=== PATIENT | female | born 1945 | race American Indian/Alaskan Native ===

== ENCOUNTER 2016-12-16 23:48 | Inpatient (IN) | payer MEDICARE ==
--- NOTE | 2016-12-17 01:00 | Emergency Department Report ---
HPI - General Chief Complaint: Weakness Time Seen by Provider: 12/17/16 00:57 - HPI HPI: [id number]-year-old -[place] female came to year-old for severe nausea , vomiting 1 day. Patient states her symptoms are accompanied by weakness. Patient was discharged from the hospital one week ago for weakness and low sodium. She states she was given nausea medicine in route to the hospital and feels much better. Patient denies any fever, chills, dysuria, urinary frequency , chest pain or shortness of breath. Patient denies any exacerbating factors. ED Past Medical Hx - Past Medical History Previous Medical History?: Yes Hx HIV: No Additional medical history: Hypothyroid, Hyponatremia - Surgical History Past Surgical History?: Yes Additional Surgical History: Tubal Ligation - Social History Smoking Status: Never Smoker Substance Use Type: None - Medications Home Medications: Home Medications Medication Instructions Recorded Confirmed Last Taken Type Levothyroxine [Synthroid] 25 mcg PO QAM 12/17/16 12/17/16 12/16/16 History ED Review of Systems ROS: Stated complaint: LOW HEART RATE Other details as noted in HPI Comment: All other systems reviewed and negative Endocrine: no symptoms reported Gastrointestinal: nausea, vomiting Physical Exam - Physical Exam Vital Signs: Vital Signs 12/17/16 12/17/16 00:07 00:38 Temperature 98.4 F Pulse Rate 49 L 53 L Respiratory 20 Rate Blood Pressure 175/63 Blood Pressure 175/63 [Left] O2 Sat by Pulse 98 Oximetry Physical Exam: - General Limitations: No Limitations General appearance: alert, in no apparent distress - Head Head exam: Present: atraumatic, normocephalic - Eye Eye exam: Present: normal appearance, EOMI. Absent: nystagmus - ENT ENT exam: Present: normal exam, normal orophraynx, mucous membranes moist, normal external ear exam - Neck Neck exam: Present: normal inspection, full ROM. Absent: tenderness, meningismus - Respiratory Respiratory exam: Present: normal lung sounds bilaterally. Absent: respiratory distress, wheezes, rales, rhonchi, stridor, chest wall tenderness, accessory muscle use, decreased breath sounds, prolonged expiratory - Cardiovascular Cardiovascular Exam: Present: regular rate, normal rhythm, normal heart sounds. Absent: bradycardia, tachycardia, irregular rhythm, systolic murmur, diastolic murmur, rubs, gallop - GI/Abdominal GI/Abdominal exam: Present: soft, normal bowel sounds. Absent: distended, tenderness, guarding, rebound, rigid, pulsatile mass - Rectal Rectal exam: Present: deferred - Extremities Exam Extremities exam: Present: - Back Exam Back exam: Present: normal inspection, full ROM. Absent: tenderness, CVA tenderness (R), CVA tenderness (L), muscle spasm, paraspinal tenderness, vertebral tenderness - Neurological Exam Neurological exam: Present: alert, oriented X3, normal gait, other (Extraocular movements intact. Tongue midline. No facial droop. Facial sensation intact to light touch in the V1, V2, V3 distribution bilaterally. 5 and 5 strength in 4 extremities.. Sensation is intact to light touch in 4 extremities.). Absent : motor sensory deficit - Psychiatric Psychiatric exam: Present: Normal affect - Skin Skin exam: Present: warm, dry, intact, normal color. Absent: rash ED Course Vital Signs 12/17/16 12/17/16 00:07 00:38 Temperature 98.4 F Pulse Rate 49 L 53 L Respiratory 20 Rate Blood Pressure 175/63 Blood Pressure 175/63 [Left] O2 Sat by Pulse 98 Oximetry ED Medical Decision Making - Lab Data Result diagrams: 12/17/16 01:36 12/17/16 01:36 Critical care attestation.: If time is entered above; I have spent that time in minutes in the direct care of this critically ill patient, excluding procedure time. ED Disposition Clinical Impression: Acute hyponatremia Disposition: OP ADMIT IP TO THIS HOSP Is pt being admited?: Yes Does the pt Need Aspirin: No Condition: Stable Referrals: PRIMARY CARE,MD [Primary Care Provider] - 3-5 Days
[2016-12-17 01:01] LABS: Bilirubin,Urine NEG (Negative); Blood,Urine NEG (Negative); Ketones,Urine TR mg/dL (Negative); Leukocyte Esterase,Urine TR (Negative); Nitrite,Urine NEG (Negative); Protein,Urine <15 mg/dL mg/dL (Negative)
[2016-12-17 02:12] LABS: Hematocrit 35.1 % (30.3-42.9); Mean Corpuscular HGB Conc 34 % (30-34); Mean Corpuscular Hemoglobin 26 pg (28-32); Mean Corpuscular Volume 76 fl (79-97); Platelet Count 211 K/mm3 (140-440); Red Cell Distribution Width 15.4 % (13.2-15.2)
[2016-12-17 02:22] LABS: Creatine Kinase MB 2.7 ng/mL (0.0-4.0)
[2016-12-17 02:25] LABS: Anion Gap 19 mmol/L; Blood Urea Nitrogen 5 mg/dL (7-17); Carbon Dioxide 23 mmol/L (22-30); Chloride 77.5 mmol/L (98-107); Creatine Kinase 300 units/L (30-135); Glucose 89 mg/dL (65-100); Potassium 3.8 mmol/L (3.6-5.0)
[2016-12-17 02:32] LABS: Sodium 116 mmol/L (137-145)
[2016-12-17 02:59] LABS: Blastocytes % (Manual) 0 %; Diff Status Complete; Platelet Estimate Consistent w Auto; RBC Morphology Normal
--- NOTE | 2016-12-17 03:57 | History and Physical Report ---
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 Patient states she gets confused with details. She came to this hospitalist, Replaced by [facility] emergency department (first visit) due to nausea, vomiting and worsening weakness with falling. She denies any abdominal pains. She feels thirsty. She denies any severe headaches, visual disturbances, fever or chills, cough, shortness of breath, syncope or chest pains. Past medical history: As HPI including CVA, hypothyroidism hypertension Past surgical history: Remote Brain surgery at [facility] and tubal ligation Social history: Nonsmoker, no alcohol abuse or drug illicit drug, full code Family history: Sister had a stroke she has hypertension ROS: Constitutional: no weight loss, no weight gain, no chills, no sweats, no fatigue , + weakness, + poor appetite Ears, nose, mouth and throat: no deferred, no ear pain, no decreased hearing, no sinus pressure, no bleeding gums, no dental pain, no mouth pain, no hoarseness, no sore throat, no swelling in mouth, no post-nasal drip, no headache, no vertigo, no pain front of neck, no neck lump Cardiovascular: chest pain, lightheadedness, decreased exercise tolerance, no orthopnea, no palpitations, no rapid/irregular heart beat, no edema, no syncope , no shortness of breath, no dyspnea on exertion, no paroxysmal nocturnal dyspnea, no claudication, no phlebitis, no high blood pressure, no leg edema Respiratory: no cough with sputum, no excessive sputum, no hemoptysis, no pleurisy, no pain, no pain on inspiration, no respiratory infections, no other Gastrointestinal: no nausea, no diarrhea, no constipation, no hematemesis, no hematochezia, no loss of appetite, no early satiety, no indigestion, no dyspepsia/bloating Genitourinary Male: no flank pain, no discharge, no urinary hesitancy, no nocturia Rectal: no incontinence, no bleeding, no itching, no discharge Musculoskeletal: no neck stiffness, no shooting arm pain, no arm numbness/ tingling, no shooting leg pain, no leg numbness/tingling, no atrophy, no limitation of motion, no fractures, no loss of height, no prior amputations, no arthritis Integumentary: no depigmentation, no dryness, no unusual bruising Neurological: + weakness, no tingling, no syncope, no vertigo, no migraines, no aphasia, + change in mentation, no changes in smell/taste,+balance difficulties , no double vision, no burning pain, no paralysis Psychiatric: hypersomnia, change in libido, irritability, no anxiety, no memory loss, no sleep disturbances, no change in appetite, no disorientation, no hallucinations, no paranoia, no hopelessness, no anxiety attacks, no confusion Endocrine: + cold intolerance, no polyphagia, no polydipsia, no polyuria, no nocturia, no proptosis, no palpatations, no high blood sugars, no low blood sugars, no fatigue Hematologic/Lymphatic: no easy bruising, no lymphedema Allergic/Immunologic: no urticaria, no allergic rhinitis, no anaphylaxis Medications and Allergies Allergies Allergy/AdvReac Type Severity Reaction Status Date / Time No Known Allergies Allergy Verified 12/17/16 00:19 Home Medications Medication Instructions Recorded Confirmed Last Taken Type Levothyroxine [Synthroid] 25 mcg PO QAM 12/17/16 12/17/16 12/16/16 History Exam - Physical Exam Narrative exam: GEN: Thin frail NAD, AWAKE, ALERT, ORIENTATED x 1 HEENT: NCAT, PERRL, EOMI, OP CLEAR NECK: SUPPLE, NO THYROMEGALY, NO JVD, NO LAD CVS: Regular bradycardia, NORMAL S1S2 LUNGS/CHEST: CTA B, NORMAL CHEST EXPANSION B, GOOD AIR ENTRY B ABD: SOFT, NTND, GBS, NO REBOUND OR GUARDING EXT/SKIN: NO SIGNIFICANT EDEMA OR RASH, mucous membranes dry with poor skin turgor, cap Refill less than 2 seconds MSK: FROM X 4 EXTREMITIES NEURO: CN 2-12 GROSSLY INTACT, NO NEW FOCAL DEFICITS PSY: CALM - Constitutional Vitals: Temp Pulse Resp BP Pulse Ox 98.4 F 47 L 12 153/66 95 12/17/16 00:07 12/17/16 02:00 12/17/16 02:00 12/17/16 02:00 12/17/16 02:00 Results - Labs CBC & Chem 7: 12/17/16 01:36 12/17/16 01:36 Labs: Abnormal lab results 12/17/16 12/17/16 Range/Units 01:36 01:36 WBC 3.0 L (4.5-11.0) K/mm3 MCV 76 L (79-97) fl MCH 26 L (28-32) pg RDW 15.4 H (13.2-15.2) % Seg Neuts % (Manual) 33.0 L (40.0-70.0) % Lymphocytes % (Manual) 54.0 H (13.4-35.0) % Monocytes % (Manual) 10.0 H (0.0-7.3) % Seg Neutrophils # Man 1.0 L (1.8-7.7) K/mm3 Sodium 116 L* (137-145) mmol/L Chloride 77.5 L (98-107) mmol/L BUN 5 L (7-17) mg/dL Creatinine 0.5 L (0.7-1.2) mg/dL Total Creatine Kinase 300 H (30-135) units/L Assessment and Plan Patient 71-year-old woman who lives with her sister at home with history 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 Patient states she gets confused with details. She came to this hospitalist, Replaced by [facility] emergency department (first visit) due to nausea, vomiting and worsening weakness with falling. She denies any abdominal pains. She feels thirsty. She denies any severe headaches, visual disturbances, fever or chills, cough, shortness of breath, syncope or chest pains. Serum Sodium was found to be 116. -Severe hyponatremia with hypovolemia: Treat with IV fluids -Hypothyroidism: Check TSH -Bradycardia may be related to hypothyroidism, [facility] list included Synthroid 25 g, Samsca, lidocaine patch and Norvasc 10mg/d: Admitted to telemetry -Accelerated hypertension: IV antihypertensive -DVT prophylaxis: Subcutaneous heparin repeat sodium level at noon
[2016-12-17] MEDS ORDERED: APRESOLINE IV PRN (04:03)
[2016-12-17] MEDS ORDERED: TYLENOL PO PRN (04:03)
[2016-12-17] MEDS ORDERED: NORCO 5/325 PO PRN (04:03)
[2016-12-17] MEDS ORDERED: ZOFRAN IV PRN (04:03)
[2016-12-17] MEDS ORDERED: NACL 0.9% 1000 ML 1,000 ML IV SCH (05:00)
[2016-12-17 10:23] LABS: Anion Gap 18 mmol/L; BUN/Creatinine Ratio 8.33; Blood Urea Nitrogen 5 mg/dL (7-17); Calcium 8.8 mg/dL (8.4-10.2); Carbon Dioxide 22 mmol/L (22-30); Chloride 77.3 mmol/L (98-107); Glucose 77 mg/dL (65-100); Potassium 3.8 mmol/L (3.6-5.0)
[2016-12-17 10:25] LABS: Sodium 113 mmol/L (137-145)
[2016-12-17] MEDS ORDERED: NACL 0.9% 1000 ML 2,000 ML IV SCH (12:07)
[2016-12-17] MEDS: PROTONIX PO SCH (13:04)
[2016-12-17] MEDS: HEPARIN SUB-Q SCH ×2 (13:04→22:11)
--- NOTE | 2016-12-17 13:16 | Progress Note ---
Assessment and Plan Assessment and plan: Hyponatremia -No seizure or altered mental status -On IV normal saline - Nephrology consult placed -We'll monitor BMP Volume depletion - Continue IV fluid Debility - Consult physical therapy Hypertension - When necessary hydralazine - Patient's blood pressure is fluctuating Hypothyroidism - TSH is within normal limits -Continue home medications DVT prophylaxis - Heparin Disposition - Continue inpatient care History Interval history: Patient was seen and evaluated this morning, she is complaining of weakness and tiredness. Patient is also complaining chronic back pain. Hospitalist Physical - Physical exam Narrative exam: Not in cardiopulmonary distress. The patient appeared well nourished and normally developed. Vital signs as documented. Head exam is unremarkable. No scleral icterus . Neck is without jugular venous distension, thyromegaly, or carotid bruits. Lungs are clear to auscultation. Cardiac exam reveals regular rate and Rhythm. Abdominal exam reveals normal bowel sounds. Extremities are nonedematous and both femoral and pedal pulses are normal. DIETARY CLERK: Alert and oriented 3. - Constitutional Vitals: Temp Pulse Resp BP Pulse Ox 97.4 F L 40 L 20 190/79 100 12/17/16 06:43 12/17/16 06:43 12/17/16 06:43 12/17/16 06:43 12/17/16 06:43 Results - Labs CBC & Chem 7: 12/17/16 01:36 12/17/16 09:45 Labs: Laboratory Last Values WBC 3.0 K/mm3 (4.5-11.0) L 12/17/16 01:36 RBC 4.60 M/mm3 (3.65-5.03) 12/17/16 01:36 Hgb 12.0 gm/dl (10.1-14.3) 12/17/16 01:36 Hct 35.1 % (30.3-42.9) 12/17/16 01:36 MCV 76 fl (79-97) L 12/17/16 01:36 MCH 26 pg (28-32) L 12/17/16 01:36 MCHC 34 % (30-34) 12/17/16 01:36 RDW 15.4 % (13.2-15.2) H 12/17/16 01:36 Plt Count 211 K/mm3 (140-440) 12/17/16 01:36 Add Manual Diff Complete 12/17/16 01:36 Total Counted 100 12/17/16 01:36 Seg Neuts % (Manual) 33.0 % (40.0-70.0) L 12/17/16 01:36 Band Neutrophils % 0 % 12/17/16 01:36 Lymphocytes % (Manual) 54.0 % (13.4-35.0) H 12/17/16 01:36 Reactive Lymphs % (Man) 0 % 12/17/16 01:36 Monocytes % (Manual) 10.0 % (0.0-7.3) H 12/17/16 01:36 Eosinophils % (Manual) 2.0 % (0.0-4.3) 12/17/16 01:36 Basophils % (Manual) 1.0 % (0.0-1.8) 12/17/16 01:36 Metamyelocytes % 0 % 12/17/16 01:36 Myelocytes % 0 % 12/17/16 01:36 Promyelocytes % 0 % 12/17/16 01:36 Blast Cells % 0 % 12/17/16 01:36 Nucleated RBC % Not Reportable 12/17/16 01:36 Seg Neutrophils # Man 1.0 K/mm3 (1.8-7.7) L 12/17/16 01:36 Band Neutrophils # 0.0 K/mm3 12/17/16 01:36 Lymphocytes # (Manual) 1.6 K/mm3 (1.2-5.4) 12/17/16 01:36 Abs React Lymphs (Man) 0.0 K/mm3 12/17/16 01:36 Monocytes # (Manual) 0.3 K/mm3 (0.0-0.8) 12/17/16 01:36 Eosinophils # (Manual) 0.1 K/mm3 (0.0-0.4) 12/17/16 01:36 Basophils # (Manual) 0.0 K/mm3 (0.0-0.1) 12/17/16 01:36 Metamyelocytes # 0.0 K/mm3 12/17/16 01:36 Myelocytes # 0.0 K/mm3 12/17/16 01:36 Promyelocytes # 0.0 K/mm3 12/17/16 01:36 Blast Cells # 0.0 K/mm3 12/17/16 01:36 WBC Morphology Not Reportable 12/17/16 01:36 Hypersegmented Neuts Not Reportable 12/17/16 01:36 Hyposegmented Neuts Not Reportable 12/17/16 01:36 Hypogranular Neuts Not Reportable 12/17/16 01:36 Smudge Cells Not Reportable 12/17/16 01:36 Toxic Granulation Not Reportable 12/17/16 01:36 Toxic Vacuolation Not Reportable 12/17/16 01:36 Dohle Bodies Not Reportable 12/17/16 01:36 Pelger-Huet Anomaly Not Reportable 12/17/16 01:36 Nini Rods Not Reportable 12/17/16 01:36 Platelet Estimate Consistent w auto 12/17/16 01:36 Clumped Platelets Not Reportable 12/17/16 01:36 Plt Clumps, EDTA Not Reportable 12/17/16 01:36 Large Platelets Not Reportable 12/17/16 01:36 Giant Platelets Not Reportable 12/17/16 01:36 Platelet Satelliting Not Reportable 12/17/16 01:36 Plt Morphology Comment Not Reportable 12/17/16 01:36 RBC Morphology Normal 12/17/16 01:36 Dimorphic RBCs Not Reportable 12/17/16 01:36 Polychromasia Not Reportable 12/17/16 01:36 Hypochromasia Not Reportable 12/17/16 01:36 Poikilocytosis Not Reportable 12/17/16 01:36 Anisocytosis Not Reportable 12/17/16 01:36 Microcytosis Not Reportable 12/17/16 01:36 Macrocytosis Not Reportable 12/17/16 01:36 Spherocytes Not Reportable 12/17/16 01:36 Pappenheimer Bodies Not Reportable 12/17/16 01:36 Sickle Cells Not Reportable 12/17/16 01:36 Target Cells Not Reportable 12/17/16 01:36 Tear Drop Cells Not Reportable 12/17/16 01:36 Ovalocytes Not Reportable 12/17/16 01:36 Helmet Cells Not Reportable 12/17/16 01:36 Cort[place]-V[place] Bodies Not Reportable 12/17/16 01:36 [place] Rings Not Reportable 12/17/16 01:36 Thu Cells Not Reportable 12/17/16 01:36 Bite Cells Not Reportable 12/17/16 01:36 Crenated Cell Not Reportable 12/17/16 01:36 Elliptocytes Not Reportable 12/17/16 01:36 Acanthocytes (Spur) Not Reportable 12/17/16 01:36 Rouleaux Not Reportable 12/17/16 01:36 Hemoglobin C Crystals Not Reportable 12/17/16 01:36 Schistocytes Not Reportable 12/17/16 01:36 Malaria parasites Not Reportable 12/17/16 01:36 Rafael Bodies Not Reportable 12/17/16 01:36 Hem Pathologist Commnt No 12/17/16 01:36 Sodium 113 mmol/L (137-145) L* 12/17/16 09:45 Potassium 3.8 mmol/L (3.6-5.0) 12/17/16 09:45 Chloride 77.3 mmol/L (98-107) L 12/17/16 09:45 Carbon Dioxide 22 mmol/L (22-30) 12/17/16 09:45 Anion Gap 18 mmol/L 12/17/16 09:45 BUN 5 mg/dL (7-17) L 12/17/16 09:45 Creatinine 0.6 mg/dL (0.7-1.2) L 12/17/16 09:45 Estimated GFR > 60 ml/min 12/17/16 09:45 BUN/Creatinine Ratio 8.33 % 12/17/16 09:45 Glucose 77 mg/dL (65-100) 12/17/16 09:45 Calcium 8.8 mg/dL (8.4-10.2) 12/17/16 09:45 Total Creatine Kinase 300 units/L (30-135) H 12/17/16 01:36 CK-MB (CK-2) 2.7 ng/mL (0.0-4.0) 12/17/16 01:36 CK-MB (CK-2) Rel Index 0.9 (0-4) 12/17/16 01:36 Troponin T < 0.010 ng/mL (0.00-0.029) 12/17/16 01:36 TSH 1.200 mlU/mL (0.270-4.200) 12/17/16 11:15 Urine Color Yellow (Yellow) 12/17/16 00:41 Urine Turbidity Clear (Clear) 12/17/16 00:41 Urine pH 7.0 (5.0-7.0) 12/17/16 00:41 Ur Specific [place] 1.005 (1.003-1.030) 12/17/16 00:41 Urine Protein <15 mg/dl mg/dL (Negative) 12/17/16 00:41 Urine Glucose (UA) Neg mg/dL (Negative) 12/17/16 00:41 Urine Ketones Tr mg/dL (Negative) 12/17/16 00:41 Urine Blood Neg (Negative) 12/17/16 00:41 Urine Nitrite Neg (Negative) 12/17/16 00:41 Urine Bilirubin Neg (Negative) 12/17/16 00:41 Urine Urobilinogen 2.0 mg/dL (<2.0) 12/17/16 00:41 Ur Leukocyte Esterase Tr (Negative) 12/17/16 00:41 Urine WBC (Auto) 4.0 /HPF (0.0-6.0) 12/17/16 00:41 Urine RBC (Auto) 3.0 /HPF (0.0-6.0) 12/17/16 00:41
[2016-12-17] MEDS ORDERED: SAMSCA PO SCH (14:00)
[2016-12-17] MEDS: LIDODERM 5% TD SCH (14:37)
--- NOTE | 2016-12-17 14:43 | Admit Criteria Form ---
Admission Criteria Documentation: HYPONATREMIA; HYPERNATREMIA; HYPOKALEMIA; HYPERKALEMIA; HYPOCALCEMIA; HYPERCALCEMIA Clinical Indications for Inpatient Care (Place 'X' for any and all applicable criteria): Ongoing inpatient care may be indicated for ANY ONE of the following [G](1)(2)(3 )(5): [X ]I. Hyponatremia with ANY ONE of the following: [X ]a) Sodium less than 130 mEq/L (mmol/L) (new) (6)(22) [ ]b) Sodium less than 135 mEq/L (mmol/L) with ANY ONE of the following: [ ]i) Severe medical etiology requiring inpatient management (eg, heart failure, hypovolemia) [ ]ii) Altered mental status [ ]iii) Seizures [ ]II. Hypernatremia with ANY ONE of the following: [ ]a) Sodium greater than 155 mEq/L (mmol/L) [ ]b) Sodium greater than 150 mEq/L (mmol/L) with ANY ONE of the following: [ ] i) Altered mental status [ ]ii) Seizures [ ]iii) Severe medical etiology (eg, hypovolemia, diabetes insipidus) [ ]iv) Severe weakness [ ]v) Severe medical etiology (eg, hemolysis, infection, drug overdose) [ ]III. Hypokalemia with ANY ONE of the following: [ ]a) Potassium less than 2.5 mEq/L (mmol/L) despite outpatient and emergency treatment [ ]b) Potassium less than 3.0 mEq/L (mmol/L) with ANY ONE of the following: [ ]i) Weakness [ ]ii) Cardiac abnormality (eg, arrhythmia, conduction disturbance) [ ]iii) Cardiac ischemia [ ]iv) Ileus [ ]v) Ongoing medical cause requiring inpatient management. ( e.g., acute renal wasting, SIADH) [ ]vi) Other severe symptoms [ ] IV. Hyperkalemia with ANY ONE of the following: [ ]a) Potassium greater than 6.5 mEq/L (mmol/L) [ ]b) Potassium greater than 5 mEq/L (mmol/L) with ANY ONE of the following: [ ]i) Severe ECG findings [H] [ ]ii) Acute worsening of renal failure (creatinine greater than 2.5 mg/dL (221 micromoles/L) or significant elevation for age and size) [ ] V. Hypocalcemia with ANY ONE of the following: [ ]a) Calcium less than 7 mg/dL (1.75 mmol/L) despite outpatient and emergency treatment(19) [ ]b) Calcium less than 8 mg/dL (2 mmol/L) with significant symptoms or findings; examples include: [ ]i) Cardiac abnormality (eg, arrhythmia or conduction disturbance) [ ]ii) Altered mental status [ ]iii) Seizures [ ]iv) Breathing difficulty [ ]v) Muscle spasms [ ]. Hypercalcemia with ANY ONE of the following: [ ]a) Calcium greater than 14 mg/dL (3.5 mmol/L) [ ]b) Calcium greater than 12 mg/dL (3 mmol/L) with ANY ONE of the following: [ ]i) Significant dehydration or hypovolemia as indicated by ANY ONE of the following(2): [ ]1. Clinically significant dehydration as indicated by ANY ONE of the following: [ ]A. Acute loss of weight from baseline (5% of body weight in adults, 9% in pediatric patients) [ ]B. Hemodynamic instability [ ]C. Acute renal failure [ ]D. Serum sodium greater than 150 mEq/L (mmol/L) [ ]2) Dehydration that is persistent indicated by ALL of the following: [ ]A. Oral rehydration therapy not tolerated or insufficient to adequately correct dehydration [ ]B. Appropriate intravenous treatment (eg, fluids ) does not readily correct dehydration ie, after 12 to 24 hours of treatment) [ ]ii) Significant symptoms or findings; examples include: [ ]1) Altered mental status [ ]2) Cardiac abnormality (eg, arrhythmia, conduction disturbance) [ ]3) Cardiac abnormality (eg, arrhythmia, conduction disturbance) The original [facility] content created by [employer] has been revised. The portions of the content which have been revised are identified through the use of italic text or in bold, and [facility] has neither reviewed nor approved the modified material. All other unmodified content is copyright [facility] Please see references footnoted in the original [facility] [employer] edition 2016 Admission Criteria Met: Yes
--- NOTE | 2016-12-17 15:36 | Consultation ---
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 Labs showed severe hyponatremia as low as 116. patient was given IV NS however Na decreased further to 113. Renal consult is requested for management of hyponatremia. Patient denies fever, chills, CP, SOB, YEN, diarrhea, abdominal pains, severe headaches, visual disturbances. However reports several falls recently, also reports increased thirst and oral fluid intake. Past History Past Medical History: hypertension, hypothyroidism, stroke Past Surgical History: Other (brain surgery ) Social history: lives with family. denies: smoking, alcohol abuse, prescription drug abuse, IV drug use Family history: no significant family history Medications and Allergies Allergies Allergy/AdvReac Type Severity Reaction Status Date / Time No Known Allergies Allergy Verified 12/17/16 00:19 Home Medications Medication Instructions Recorded Confirmed Last Taken Type Levothyroxine [Synthroid] 25 mcg PO QAM 12/17/16 12/17/16 12/16/16 History Active Meds: Active Medications Acetaminophen (Tylenol) 650 mg PO Q6H PRN PRN Reason: Non Cardiac Pain or Temp>100.5 Acetaminophen/Hydrocodone Bitart ([place] 5/325) 1 each PO Q4H PRN PRN Reason: Pain, Moderate (4-6) Heparin Sodium (Porcine) (Heparin) 5,000 unit SUB-Q Q12HR [facility]Y Last Admin: 12/17/16 13:04 Dose: 5,000 unit Hydralazine HCl (Apresoline) 10 mg IV Q4HR PRN PRN Reason: Blood Pressure Sodium Chloride (Nacl 0.9% 1000 Ml) 2,000 mls @ 100 mls/hr IV DIRECT MISTY Lidocaine (Lidoderm 5%) 1 each TD QDAY MISTY Ondansetron HCl (Zofran) 4 mg IV Q4H PRN PRN Reason: Nausea And Vomiting Pantoprazole Sodium (Protonix) 40 mg PO QDAY [facility] Last Admin: 12/17/16 13:04 Dose: 40 mg Tolvaptan (Samsca) 15 mg PO Q24H [facility] Review of Systems All systems: negative Constitutional: fatigue, weakness, poor appetite Gastrointestinal: nausea, vomiting Exam - Vital Signs Vital signs: Vital Signs Temp Pulse Resp BP Pulse Ox 98.4 F 49 L 20 175/63 98 12/17/16 00:07 12/17/16 00:07 12/17/16 00:07 12/17/16 00:07 12/17/16 00:07 - General Appearance General appearance: appears stated age, fatigue, frail EENT: ATNC, PERRL, mucous membranes moist Neck: Present: neck supple Respiratory: Clear to Ascultation Heart: regular, S1S2 Gastrointestinal: Present: normal, normoactive bowel sounds Integumentary: no rash, other (no edema ) Neurologic: no focal deficit, alert and oriented x3, strength 5/5, CN 3-12 intact Psychiatric: mood/affect appropriate, cooperative Results - Lab Results 12/17/16 01:36 12/17/16 09:45 Most recent lab results Calcium 8.8 mg/dL (8.4-10.2) 12/17/16 09:45 Laboratory Tests 12/17/16 12/17/16 12/17/16 00:41 01:36 11:15 Total Creatine Kinase 300 H CK-MB (CK-2) 2.7 CK-MB (CK-2) Rel Index 0.9 Troponin T < 0.010 TSH 1.200 Urine Color Yellow Urine Turbidity Clear Urine pH 7.0 Ur Specific [place] 1.005 Urine Protein <15 mg/dl Urine Glucose (UA) Neg Urine Ketones Tr Urine Blood Neg Urine Nitrite Neg Urine Bilirubin Neg Ur Leukocyte Esterase Tr Urine WBC (Auto) 4.0 Assessment and Plan - Patient Problems (1) Acute hyponatremia Current Visit: Yes Status: Acute Plan to address problem: acute hyponatremia likely due to hypovolemic hyponatremia superimposed on chronic hyponatremia due to SIADH and decreased solute intake. Na not improving on IV NS. will add tolvaptan 15mg po qd. check urine lytes/ osm, serum uric acid level, AM cortisol level. TSH within normal range Will monitor Na closely and target Na correction of 8-10meq/daily (2) Nausea & vomiting Current Visit: Yes Status: Acute Qualifiers: Vomiting type: V Vomiting Intractability: V Plan to address problem: cont IV NS, improving (3) Hypothyroidism Current Visit: Yes Status: Acute Qualifiers: Hypothyroidism type: H Plan to address problem: cont synthroid. TSH wnl
[2016-12-17 15:45] LABS: BUN/Creatinine Ratio 11.66; Blood Urea Nitrogen 7 mg/dL (7-17); Calcium 8.7 mg/dL (8.4-10.2); Carbon Dioxide 21 mmol/L (22-30); Chloride 78.5 mmol/L (98-107); Glucose 85 mg/dL (65-100); Potassium 3.6 mmol/L (3.6-5.0)
[2016-12-17 16:00] LABS: Sodium 115 mmol/L (137-145)
[2016-12-17 16:01] LABS: Anion Gap 19 mmol/L
--- NOTE | 2016-12-17 16:14 | Consultation ---
History of Present Illness Consult date: 12/17/16 Consult reason: bradycardia History of present illness: Patient presented with nausea, vomiting, weakness admitted with severe hyponatremia. Initial labs shows a sodium of 113. Patient reports she was discharged from [facility] weeks ago for low sodium levels. An 12 lead ECG shows a sinus bradycardia, rate 52, with marked Twave abnormalities. Patient denies chest pain and shortness of breath. She denies dizziness. Cardiac consultation requested for asymptomatic sinus bradycardia. Patient has a longstanding history of marked sinus bradycardia. An echocardiogram this admission shows a normal left ventricular systolic function but at least a moderate regurgitation. A stress test done 8 months ago reports a normal perfusion myocardial scan. Co-morbidities includes prior CVA with mild hemiparesis, Hypothyroidism and Hyperlipidemia. Past History Social history: lives with family Family history: no significant family history Medications and Allergies Allergies Allergy/AdvReac Type Severity Reaction Status Date / Time No Known Allergies Allergy Verified 12/17/16 00:19 Home Medications Medication Instructions Recorded Confirmed Last Taken Type Levothyroxine [Synthroid] 25 mcg PO QAM 12/17/16 12/17/16 12/16/16 History Active Meds: Active Medications Acetaminophen (Tylenol) 650 mg PO Q6H PRN PRN Reason: Non Cardiac Pain or Temp>100.5 Acetaminophen/Hydrocodone Bitart ([place] 5/325) 1 each PO Q4H PRN PRN Reason: Pain, Moderate (4-6) Heparin Sodium (Porcine) (Heparin) 5,000 unit SUB-Q Q12HR [facility] Last Admin: 12/17/16 13:04 Dose: 5,000 unit Hydralazine HCl (Apresoline) 10 mg IV Q4HR PRN PRN Reason: Blood Pressure Sodium Chloride (Nacl 0.9% 1000 Ml) 2,000 mls @ 100 mls/hr IV DIRECT MISTY Lidocaine (Lidoderm 5%) 1 each TD QDAY [facility] Ondansetron HCl (Zofran) 4 mg IV Q4H PRN PRN Reason: Nausea And Vomiting Pantoprazole Sodium (Protonix) 40 mg PO QDAY [facility] Last Admin: 12/17/16 13:04 Dose: 40 mg Tolvaptan (Samsca) 15 mg PO Q24H [facility] Physical Examination Vital Signs Temp Pulse Resp BP Pulse Ox 98.4 F 49 L 20 175/63 98 12/17/16 00:07 12/17/16 00:07 12/17/16 00:07 12/17/16 00:07 12/17/16 00:07 General appearance: no acute distress HEENT: Positive: PERRL Neck: Positive: trachea midline Cardiac: Positive: Bradycardia Lungs: Positive: Decreased Breath Sounds Results 12/17/16 01:36 12/17/16 15:03 Comprehensive Metabolic Panel 12/17/16 12/17/16 Range/Units 09:45 15:03 Sodium 113 L* 115 L* (137-145) mmol/L Potassium 3.8 3.6 (3.6-5.0) mmol/L Chloride 77.3 L 78.5 L (98-107) mmol/L Carbon Dioxide 22 21 L (22-30) mmol/L BUN 5 L 7 (7-17) mg/dL Creatinine 0.6 L 0.6 L (0.7-1.2) mg/dL Glucose 77 85 (65-100) mg/dL Calcium 8.8 8.7 (8.4-10.2) mg/dL Assessment and Plan Recurrent Hyponatremia Asymptomatic sinus bradycardia Hypothyroidism Prior CVA Hypertension Mitral regurgitation, at least moderate on echo Normal MPI 03/2016
[2016-12-18 06:21] LABS: Hematocrit 33.6 % (30.3-42.9); Hemoglobin 11.4 gm/dl (10.1-14.3); Mean Corpuscular HGB Conc 34 % (30-34); Mean Corpuscular Hemoglobin 26 pg (28-32); Mean Corpuscular Volume 77 fl (79-97); Platelet Count 236 K/mm3 (140-440); Red Blood Count 4.38 M/mm3 (3.65-5.03); White Blood Count 3.4 K/mm3 (4.5-11.0)
[2016-12-18 06:34] LABS: Alanine Aminotransferase 51 units/L (7-56); Albumin 4.2 g/dL (3.9-5); Albumin/Globulin Ratio 1.5 %; Alkaline Phosphatase 113 units/L (35-129); Anion Gap 18 mmol/L; BUN/Creatinine Ratio 8.75; Blood Urea Nitrogen 7 mg/dL (7-17); Calcium 9.1 mg/dL (8.4-10.2); Carbon Dioxide 24 mmol/L (22-30); Chloride 94.2 mmol/L (98-107); Glucose 68 mg/dL (65-100); Sodium 132 mmol/L (137-145)
[2016-12-18 06:36] LABS: Potassium 4.4 mmol/L (3.6-5.0)
[2016-12-18] MEDS ORDERED: D5W 1,000 ML IV SCH (08:00)
[2016-12-18] MEDS: SYNTHROID PO SCH (09:21)
[2016-12-18] MEDS: PROTONIX PO SCH (09:22)
[2016-12-18] MEDS: HEPARIN SUB-Q SCH ×2 (09:22→21:24)
--- NOTE | 2016-12-18 11:43 | Progress Note ---
Assessment and Plan - Patient Problems (1) Acute hyponatremia Current Visit: Yes Status: Acute Plan to address problem: acute hyponatremia likely due to hypovolemic hyponatremia superimposed on chronic hyponatremia due to SIADH and decreased solute intake. Sodium correcting to fast s/p tolvaptan. Will d/c tolvaptan and IV NS. started D5W to slow down rate of Na correction to 130 today. check Na q6hrs (2) Nausea & vomiting Current Visit: Yes Status: Acute Qualifiers: Vomiting type: V Vomiting Intractability: V Plan to address problem: resolved (3) Hypothyroidism Current Visit: Yes Status: Acute Qualifiers: Hypothyroidism type: H Plan to address problem: cont synthroid. TSH wnl Subjective Date of service: 12/18/16 Interval history: pt awake, alert, in nad, denies nausea, vomiting, abd pain, dizziness, blurry vision. Objective - Vital Signs Vital signs: Vital Signs - 12hr 12/18/16 12/18/16 05:00 10:01 Temperature 97.9 F Pulse Rate 37 L 43 L Respiratory 12 Rate Blood Pressure 107/63 O2 Sat by Pulse 0 L Oximetry - General Appearance General appearance: well-nourished, appears stated age EENT: ATNC, PERRL, mucous membranes moist Neck: no JVD Respiratory: Present: Clear to Ascultation Cardiology: regular, S1S2 Gastrointestinal: normal, normoactive bowel sounds Integumentary: no rash, other (no edema ) Neurologic: no focal deficit, alert and oriented x3, strength 5/5, CN 3-12 intact Psychiatric: mood/affect appropriate, cooperative - Lab 12/18/16 05:42 12/18/16 09:36 Most recent lab results Calcium 9.1 mg/dL (8.4-10.2) 12/18/16 05:42 Magnesium 2.00 mg/dL (1.7-2.3) 12/18/16 05:42 Urine Creatinine 32.5 mg/dL (0.1-20.0) H 12/17/16 13:20 Urine Sodium 98 mEq/L 12/17/16 13:20
--- NOTE | 2016-12-18 11:45 | Progress Note ---
Assessment and Plan Recurrent Hyponatremia Asymptomatic sinus bradycardia Hypothyroidism Prior CVA Hypertension Mitral regurgitation, at least moderate on echo Abnormal ECG T-wave inversions are similar to an outpatient ECG done 01/30/2016. Normal MPI 03/2016. Conservative cardiac management. Subjective Date of service: 12/18/16 Interval history: Physical therapy at bedside. Sinus bradycardia, rate ranging from low 30s to 50s on telemetry. Patient remains asymptomatic. Objective Vital Signs Temp Pulse Resp BP Pulse Ox 12/18/16 10:01 97.9 F 43 L 12 107/63 0 L 12/18/16 05:00 37 L 12/17/16 22:00 97.6 F 41 L 18 103/52 100 12/17/16 21:00 60 12/17/16 13:38 51 L 12/17/16 13:20 98.5 F 51 L 20 139/76 100 - Physical Examination General: No Apparent Distress HEENT: Positive: PERRL Neck: Positive: trachea midline Cardiac: Positive: Bradycardia - Labs and Meds Cardiac Enzymes 12/18/16 Range/Units 05:42 AST 48 H (5-40) units/L CBC 12/18/16 Range/Units 05:42 WBC 3.4 L (4.5-11.0) K/mm3 RBC 4.38 (3.65-5.03) M/mm3 Hgb 11.4 (10.1-14.3) gm/dl Hct 33.6 (30.3-42.9) % Plt Count 236 (140-440) K/mm3 Comprehensive Metabolic Panel 12/17/16 12/18/16 12/18/16 Range/Units 15:03 00:27 05:42 Sodium 115 L* 127 L D 132 L (137-145) mmol/L Potassium 3.6 4.4 D (3.6-5.0) mmol/L Chloride 78.5 L 94.2 L (98-107) mmol/L Carbon Dioxide 21 L 24 (22-30) mmol/L BUN 7 7 (7-17) mg/dL Creatinine 0.6 L 0.8 (0.7-1.2) mg/dL Glucose 85 68 (65-100) mg/dL Calcium 8.7 9.1 (8.4-10.2) mg/dL AST 48 H (5-40) units/L ALT 51 (7-56) units/L Alkaline Phosphatase 113 (35-129) units/L Total Protein 7.0 (6.3-8.2) g/dL Albumin 4.2 (3.9-5) g/dL 12/18/16 Range/Units 09:36 Sodium 136 L (137-145) mmol/L Potassium (3.6-5.0) mmol/L Chloride (98-107) mmol/L Carbon Dioxide (22-30) mmol/L BUN (7-17) mg/dL Creatinine (0.7-1.2) mg/dL Glucose (65-100) mg/dL Calcium (8.4-10.2) mg/dL AST (5-40) units/L ALT (7-56) units/L Alkaline Phosphatase (35-129) units/L Total Protein (6.3-8.2) g/dL Albumin (3.9-5) g/dL
[2016-12-18] MEDS: LIDODERM 5% TD SCH (13:15)
--- NOTE | 2016-12-18 14:21 | Progress Note ---
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 Patient states she gets confused with details. [facility] due to nausea, vomiting and worsening weakness with falling. She denies any abdominal pains. She feels thirsty. She denies any severe headaches, visual disturbances, fever or chills, cough, shortness of breath, syncope or chest pains. Serum Sodium was found to be 116. -Severe hyponatremia with hypovolemia : Nephrology input noted now corrected patient was treated with TOlvaptan, Now changed to D5w to slow down correction. continue Na check q6hrs. -Possible SIDH- as noted above -Hypothyroidism: TFT within normal limits -Bradycardia-Asymptomatic. Cardiology input noted. may be related to hypothyroidism, [facility] list included Synthroid 25 g, Samsca, lidocaine patch and Norvasc 10mg/d. -Accelerated hypertension: IV antihypertensive, PRN -Mitral Regurgitation -Prior episode of CVA -Twave inversion- unchanged from 01/30/2016 per cardiology -Recurrent nausea with vomiting possible secondary to viral gastroenteritis now resolved- Recommend out patient GI evaluation. -DVT prophylaxis: Subcutaneous heparin -Anticipate discharge in AM -DVT/GI prophy History Interval history: Patient seen and examined this morning and reports improvement in symptomatology. Reports that she has had repeated episodes of the same also associated with nausea or vomiting. No further nausea or vomiting today. No other adverse event reported by nursing staff. Hospitalist Physical - Physical exam Narrative exam: VITAL SIGNS: Reviewed. GENERAL: The patient appeared well nourished and normally developed. Vital signs as documented. HEAD: No signs of head trauma. EYES: Pupils are equal. Extraocular motions intact. EARS: Hearing grossly intact. MOUTH: Oropharynx is normal. NECK: No adenopathy, no JVD. CHEST: Chest with clear breath sounds bilaterally. No wheezes, rales, or rhonchi. CARDIAC: Bradycardia otherwise regular rhythm. S1 and S2, without murmurs, gallops, or rubs. VASCULAR: No Edema. Peripheral pulses normal and equal in all extremities. ABDOMEN: Soft, without detectable tenderness. No sign of distention. No rebound or guarding, and no masses palpated. Bowel Sounds normal. MUSCULOSKELETAL: Good range of motion of all major joints. Extremities without clubbing, cyanosis or edema. NEUROLOGIC EXAM: Alert and oriented x 3. No focal sensory or strength deficits. Speech normal. Follows commands. PSYCHIATRIC: Mood normal. SKIN: No rash or lesions. - Constitutional Vitals: Temp Pulse Resp BP Pulse Ox 97.9 F 39 L 12 107/63 0 L 12/18/16 10:01 12/18/16 13:00 12/18/16 10:01 12/18/16 10:01 12/18/16 10:01 General appearance: Present: no acute distress Results - Labs CBC & Chem 7: 12/18/16 05:42 12/18/16 09:36 Labs: Laboratory Last Values WBC 3.4 K/mm3 (4.5-11.0) L 12/18/16 05:42 RBC 4.38 M/mm3 (3.65-5.03) 12/18/16 05:42 Hgb 11.4 gm/dl (10.1-14.3) 12/18/16 05:42 Hct 33.6 % (30.3-42.9) 12/18/16 05:42 MCV 77 fl (79-97) L 12/18/16 05:42 MCH 26 pg (28-32) L 12/18/16 05:42 MCHC 34 % (30-34) 12/18/16 05:42 RDW 16.0 % (13.2-15.2) H 12/18/16 05:42 Plt Count 236 K/mm3 (140-440) 12/18/16 05:42 Add Manual Diff Complete 12/17/16 01:36 Total Counted 100 12/17/16 01:36 Seg Neuts % (Manual) 33.0 % (40.0-70.0) L 12/17/16 01:36 Band Neutrophils % 0 % 12/17/16 01:36 Lymphocytes % (Manual) 54.0 % (13.4-35.0) H 12/17/16 01:36 Reactive Lymphs % (Man) 0 % 12/17/16 01:36 Monocytes % (Manual) 10.0 % (0.0-7.3) H 12/17/16 01:36 Eosinophils % (Manual) 2.0 % (0.0-4.3) 12/17/16 01:36 Basophils % (Manual) 1.0 % (0.0-1.8) 12/17/16 01:36 Metamyelocytes % 0 % 12/17/16 01:36 Myelocytes % 0 % 12/17/16 01:36 Promyelocytes % 0 % 12/17/16 01:36 Blast Cells % 0 % 12/17/16 01:36 Nucleated RBC % Not Reportable 12/17/16 01:36 Seg Neutrophils # Man 1.0 K/mm3 (1.8-7.7) L 12/17/16 01:36 Band Neutrophils # 0.0 K/mm3 12/17/16 01:36 Lymphocytes # (Manual) 1.6 K/mm3 (1.2-5.4) 12/17/16 01:36 Abs React Lymphs (Man) 0.0 K/mm3 12/17/16 01:36 Monocytes # (Manual) 0.3 K/mm3 (0.0-0.8) 12/17/16 01:36 Eosinophils # (Manual) 0.1 K/mm3 (0.0-0.4) 12/17/16 01:36 Basophils # (Manual) 0.0 K/mm3 (0.0-0.1) 12/17/16 01:36 Metamyelocytes # 0.0 K/mm3 12/17/16 01:36 Myelocytes # 0.0 K/mm3 12/17/16 01:36 Promyelocytes # 0.0 K/mm3 12/17/16 01:36 Blast Cells # 0.0 K/mm3 12/17/16 01:36 WBC Morphology Not Reportable 12/17/16 01:36 Hypersegmented Neuts Not Reportable 12/17/16 01:36 Hyposegmented Neuts Not Reportable 12/17/16 01:36 Hypogranular Neuts Not Reportable 12/17/16 01:36 Smudge Cells Not Reportable 12/17/16 01:36 Toxic Granulation Not Reportable 12/17/16 01:36 Toxic Vacuolation Not Reportable 12/17/16 01:36 Dohle Bodies Not Reportable 12/17/16 01:36 Pelger-Huet Anomaly Not Reportable 12/17/16 01:36 Nini Rods Not Reportable 12/17/16 01:36 Platelet Estimate Consistent w auto 12/17/16 01:36 Clumped Platelets Not Reportable 12/17/16 01:36 Plt Clumps, EDTA Not Reportable 12/17/16 01:36 Large Platelets Not Reportable 12/17/16 01:36 Giant Platelets Not Reportable 12/17/16 01:36 Platelet Satelliting Not Reportable 12/17/16 01:36 Plt Morphology Comment Not Reportable 12/17/16 01:36 RBC Morphology Normal 12/17/16 01:36 Dimorphic RBCs Not Reportable 12/17/16 01:36 Polychromasia Not Reportable 12/17/16 01:36 Hypochromasia Not Reportable 12/17/16 01:36 Poikilocytosis Not Reportable 12/17/16 01:36 Anisocytosis Not Reportable 12/17/16 01:36 Microcytosis Not Reportable 12/17/16 01:36 Macrocytosis Not Reportable 12/17/16 01:36 Spherocytes Not Reportable 12/17/16 01:36 Pappenheimer Bodies Not Reportable 12/17/16 01:36 Sickle Cells Not Reportable 12/17/16 01:36 Target Cells Not Reportable 12/17/16 01:36 Tear Drop Cells Not Reportable 12/17/16 01:36 Ovalocytes Not Reportable 12/17/16 01:36 Helmet Cells Not Reportable 12/17/16 01:36 [place] Bodies Not Reportable 12/17/16 01:36 [place] Rings Not Reportable 12/17/16 01:36 Thu Cells Not Reportable 12/17/16 01:36 Bite Cells Not Reportable 12/17/16 01:36 Crenated Cell Not Reportable 12/17/16 01:36 Elliptocytes Not Reportable 12/17/16 01:36 Acanthocytes (Spur) Not Reportable 12/17/16 01:36 Rouleaux Not Reportable 12/17/16 01:36 Hemoglobin C Crystals Not Reportable 12/17/16 01:36 Schistocytes Not Reportable 12/17/16 01:36 Malaria parasites Not Reportable 12/17/16 01:36 [place] Bodies Not Reportable 12/17/16 01:36 Hem Pathologist Commnt No 12/17/16 01:36 Sodium 136 mmol/L (137-145) L 12/18/16 09:36 Potassium 4.4 mmol/L (3.6-5.0) D 12/18/16 05:42 Chloride 94.2 mmol/L (98-107) L 12/18/16 05:42 Carbon Dioxide 24 mmol/L (22-30) 12/18/16 05:42 Anion Gap 18 mmol/L 12/18/16 05:42 BUN 7 mg/dL (7-17) 12/18/16 05:42 Creatinine 0.8 mg/dL (0.7-1.2) 12/18/16 05:42 Estimated GFR > 60 ml/min 12/18/16 05:42 BUN/Creatinine Ratio 8.75 % 12/18/16 05:42 Glucose 68 mg/dL (65-100) 12/18/16 05:42 Calcium 9.1 mg/dL (8.4-10.2) 12/18/16 05:42 Magnesium 2.00 mg/dL (1.7-2.3) 12/18/16 05:42 Total Bilirubin 0.60 mg/dL (0.1-1.2) 12/18/16 05:42 AST 48 units/L (5-40) H 12/18/16 05:42 ALT 51 units/L (7-56) 12/18/16 05:42 Alkaline Phosphatase 113 units/L (35-129) 12/18/16 05:42 Total Creatine Kinase 300 units/L (30-135) H 12/17/16 01:36 CK-MB (CK-2) 2.7 ng/mL (0.0-4.0) 12/17/16 01:36 CK-MB (CK-2) Rel Index 0.9 (0-4) 12/17/16 01:36 Troponin T < 0.010 ng/mL (0.00-0.029) 12/17/16 01:36 Total Protein 7.0 g/dL (6.3-8.2) 12/18/16 05:42 Albumin 4.2 g/dL (3.9-5) 12/18/16 05:42 Albumin/Globulin Ratio 1.5 % 12/18/16 05:42 TSH 1.200 mlU/mL (0.270-4.200) 12/17/16 11:15 Urine Color Yellow (Yellow) 12/17/16 00:41 Urine Turbidity Clear (Clear) 12/17/16 00:41 Urine pH 7.0 (5.0-7.0) 12/17/16 00:41 Ur Specific [place] 1.005 (1.003-1.030) 12/17/16 00:41 Urine Protein <15 mg/dl mg/dL (Negative) 12/17/16 00:41 Urine Glucose (UA) Neg mg/dL (Negative) 12/17/16 00:41 Urine Ketones Tr mg/dL (Negative) 12/17/16 00:41 Urine Blood Neg (Negative) 12/17/16 00:41 Urine Nitrite Neg (Negative) 12/17/16 00:41 Urine Bilirubin Neg (Negative) 12/17/16 00:41 Urine Urobilinogen 2.0 mg/dL (<2.0) 12/17/16 00:41 Ur Leukocyte Esterase Tr (Negative) 12/17/16 00:41 Urine WBC (Auto) 4.0 /HPF (0.0-6.0) 12/17/16 00:41 Urine RBC (Auto) 3.0 /HPF (0.0-6.0) 12/17/16 00:41 Urine Osmolality 270 Mosm/kg 12/17/16 13:20 Urine Creatinine 32.5 mg/dL (0.1-20.0) H 12/17/16 13:20 Urine Sodium 98 mEq/L 12/17/16 13:20
[2016-12-19] MEDS: SYNTHROID PO SCH (06:15)
[2016-12-19 07:19] LABS: Anion Gap 19 mmol/L; BUN/Creatinine Ratio 8.75; Blood Urea Nitrogen 7 mg/dL (7-17); Calcium 9.9 mg/dL (8.4-10.2); Carbon Dioxide 24 mmol/L (22-30); Chloride 101.4 mmol/L (98-107); Glucose 81 mg/dL (65-100); Potassium 4.5 mmol/L (3.6-5.0); Sodium 140 mmol/L (137-145)
--- NOTE | 2016-12-19 08:53 | Discharge Summary ---
Providers - Providers Date of Admission: 12/17/16 03:40 Attending physician: JOAQUIN SÁNCHEZ MD 12/17/16 12:08 Consult to Physician [CONS] Routine Consulting Provider: BEATRICE JOHN Reason For Exam: hyponatremia Place consult to:: Dr. John Notified:: Vamsi BALDWIN Phone number called:: Was contact made?: Yes If yes, spoke with:: -Office Time called:: 12:00 12/17/16 13:10 Physical Therapy Evaluation and Treat [CONS] Urgent Comment: Reason For Exam: debility 12/17/16 13:16 Consult to Physician [CONS] Routine Consulting Provider: ANALY NOLAN Reason For Exam: easy fatiguability, bradycardia Place consult to:: Dr. 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 Patient states she gets confused with details. She came to this hospitalist, [facility] emergency department (first visit) due to nausea, vomiting and worsening weakness with falling. She denies any abdominal pains. She feels thirsty. She denies any severe headaches, visual disturbances, fever or chills, cough, shortness of breath, syncope or chest pains. Serum Sodium was found to be 116. this corrected with treatment as noted below. patient is tolerating diet at this time. cleared for discharge and to follow with GI outpatient. Considering she has had this hyponatremic episode in the past and at the time not associated with nausea or vomiting, will recommend outpatient follow up with Nephrology also. -Severe hyponatremia with hypovolemia : Nephrology input noted now corrected patient was treated with TOlvaptan, -SIDH- from low solute intake. as noted above -Hypothyroidism: TFT within normal limits -Bradycardia-Asymptomatic. Cardiology input noted. may be related to hypothyroidism, [facility] list included Synthroid 25 g, Samsca, lidocaine patch and Norvasc 10mg/d. samsca and lidocaine, discontinued -Hypertensive urgency:Resolved. pateint was treated with IV antihypertensive, PRN -Mitral Regurgitation: FOLLOW WITH CARDIOLOGY OUTPTATIENT -Prior episode of CVA -Twave inversion- unchanged from 01/30/2016 per cardiology -Recurrent nausea with vomiting possible secondary to viral gastroenteritis now resolved- Recommend out patient GI evaluation. Disposition: [id number] HOME UNDER HOME [facility] Time spent for discharge: 35 mins Core Measure Documentation - Palliative Care Palliative Care/ Comfort Measures: Not Applicable - Core Measures Any of the following diagnoses?: none - VTE Discharge Requirements Deep Vein Thrombosis/Pulmonary Embolism Present on Admission: No Exam - Physical Exam Narrative exam: VITAL SIGNS: Reviewed. GENERAL: The patient appeared well nourished and normally developed. Vital signs as documented. HEAD: No signs of head trauma. EYES: Pupils are equal. Extraocular motions intact. EARS: Hearing grossly intact. MOUTH: Oropharynx is normal. NECK: No adenopathy, no JVD. CHEST: Chest with clear breath sounds bilaterally. No wheezes, rales, or rhonchi. CARDIAC: Bradycardia otherwise regular rhythm. S1 and S2, without murmurs, gallops, or rubs. VASCULAR: No Edema. Peripheral pulses normal and equal in all extremities. ABDOMEN: Soft, without detectable tenderness. No sign of distention. No rebound or guarding, and no masses palpated. Bowel Sounds normal. MUSCULOSKELETAL: Good range of motion of all major joints. Extremities without clubbing, cyanosis or edema. NEUROLOGIC EXAM: Alert and oriented x 3. No focal sensory or strength deficits. Speech normal. Follows commands. PSYCHIATRIC: Mood normal. SKIN: No rash or lesions. - Constitutional Vitals: Temp Pulse Resp BP Pulse Ox 98.7 F 48 L 20 139/65 99 12/19/16 05:53 12/19/16 05:53 12/19/16 05:53 12/19/16 05:53 12/19/16 05:53 Plan Activity: advance as tolerated, fall precautions Diet: low salt Special Instructions: record daily weights, record daily BP diary Additional Instructions: follow with GI for evaluation of recurrent Nausea and vomiting Follow up with: BEATRIS ALICIA MD [Staff Physician] - 7 Days PRIMARY CARE, [Referring] - 3-5 Days ANAYL NOLAN MD [Staff Physician] - 7 Days RAMY SALAZAR MD [Staff Physician] - 7 Days Prescriptions: amLODIPine [Norvasc] 5 mg PO DAILY #30 tab Ondansetron [Zofran TAB] 4 mg PO Q8HR PRN #30 tablet PRN Reason: Nausea Pantoprazole [Protonix TAB] 40 mg PO QDAY #30 tablet
[2016-12-19 08:55] VITALS: BP 90/44
--- NOTE | 2016-12-19 09:45 | Progress Note ---
Assessment and Plan Recurrent Hyponatremia Asymptomatic sinus bradycardia Hypothyroidism Prior CVA Hypertension Mitral regurgitation, at least moderate on echo Abnormal ECG T-wave inversions are similar to an outpatient ECG done 01/30/2016. Normal MPI 03/2016. Recommendations: Conservative cardiac management for chronic, asymptomatic sinus bradycardia. F/U with [facility] within 1 week of discharge. Subjective Date of service: 12/19/16 Interval history: Patient has no complaints. Objective Vital Signs Temp Pulse Resp BP Pulse Ox 12/19/16 08:50 98.8 F 58 L 18 90/44 99 12/19/16 05:53 98.7 F 48 L 20 139/65 99 12/19/16 05:00 53 L 12/19/16 00:41 46 L 18 148/69 100 12/18/16 20:57 97.3 F L 49 L 20 115/53 100 12/18/16 20:00 46 L 12/18/16 17:28 98.2 F 46 L 14 119/69 0 L 12/18/16 15:05 98.2 F 43 L 12 123/71 0 L 12/18/16 13:00 39 L 12/18/16 10:01 97.9 F 43 L 12 107/63 0 L - Physical Examination General: No Apparent Distress HEENT: Positive: PERRL Neck: Positive: trachea midline Cardiac: Positive: Bradycardia Lungs: Positive: Decreased Breath Sounds Neuro: Positive: Grossly Intact, Weakness - Labs and Meds Comprehensive Metabolic Panel 12/18/16 12/18/16 12/19/16 Range/Units 09:36 16:10 06:18 Sodium 136 L 133 L 140 D (137-145) mmol/L Potassium 4.5 (3.6-5.0) mmol/L Chloride 101.4 (98-107) mmol/L Carbon Dioxide 24 (22-30) mmol/L BUN 7 (7-17) mg/dL Creatinine 0.8 (0.7-1.2) mg/dL Glucose 81 (65-100) mg/dL Calcium 9.9 (8.4-10.2) mg/dL
--- NOTE | 2016-12-19 11:00 | Progress Note ---
Assessment and Plan - Patient Problems (1) Acute hyponatremia Current Visit: Yes Status: Acute Plan to address problem: na normalized. cont fluid restriction to 1.5L/day. stable for discharge from renal stand point (2) Nausea & vomiting Current Visit: Yes Status: Acute Qualifiers: Vomiting type: V Vomiting Intractability: V Plan to address problem: resolved (3) Hypothyroidism Current Visit: Yes Status: Acute Qualifiers: Hypothyroidism type: H Plan to address problem: cont synthroid. TSH wnl Subjective Date of service: 12/19/16 Interval history: pt awake, alert, denies nausea, vomiting, abd pain, dizziness, blurry vision. Objective - Vital Signs Vital signs: Vital Signs - 12hr 12/19/16 12/19/16 12/19/16 00:41 05:00 05:53 Temperature 98.7 F Pulse Rate 46 L 53 L 48 L Respiratory 18 20 Rate Blood Pressure 148/69 139/65 O2 Sat by Pulse 100 99 Oximetry 12/19/16 08:50 Temperature 98.8 F Pulse Rate 58 L Respiratory 18 Rate Blood Pressure 90/44 O2 Sat by Pulse 99 Oximetry - General Appearance General appearance: well-developed, well-nourished, appears stated age EENT: ATNC, PERRL, mucous membranes moist Neck: no JVD Respiratory: Present: Clear to Ascultation Cardiology: regular, S1S2 Gastrointestinal: normal, normoactive bowel sounds Integumentary: no rash, other (no edema ) Neurologic: no focal deficit, alert and oriented x3, strength 5/5, CN 3-12 intact Psychiatric: mood/affect appropriate, cooperative - Lab 12/18/16 05:42 12/19/16 06:18 Most recent lab results Calcium 9.9 mg/dL (8.4-10.2) 12/19/16 06:18 Magnesium 2.00 mg/dL (1.7-2.3) 12/18/16 05:42 Urine Creatinine 32.5 mg/dL (0.1-20.0) H 12/17/16 13:20 Urine Sodium 98 mEq/L 12/17/16 13:20
[2016-12-19] MEDS: PROTONIX PO SCH (11:09)
[2016-12-19] MEDS: HEPARIN SUB-Q SCH (11:09)
[2016-12-19] MEDS: LIDODERM 5% TD SCH (11:10)
--- NOTE | 2016-12-24 11:29 | Query- Nutrition ---
Dear _Jose Luis Date:____12/24/16 Environmental Analyst/CDS:___Noman / Josr Phone#:____[phone] Exercise your independent professional judgment when responding to query. Questions asked do not imply a particular answer is desired or expected. We greatly appreciate your clarification on this issue. Clinical Documentation States: 71 year old female was admitted on 12/17/16 The Discharge summary (Dr. Amaya) states " -Severe hyponatremia with hypovolemia : Nephrology input noted now corrected patient was treated with TOlvaptan, SIDH - from low solute intake. Recurrent nausea with vomiting possible secondary to viral gastroenteritis now resolved- Recommend out patient GI evaluation. " The H&P (Dr. Dawson) states " + poor appetite , thin, frail" The Nutrition note states " Patient reports 12.8% unintentional weight loss over the past few months " Clinical Findings Show: BMI: 19.6 Please select the most appropriate option 3 [x] Mild Malnutrition [] Mild - Moderate Malnutrition [] Moderate - Severe Malnutrition [] Severe Malnutrition Serum Albumin 2.8 to 3.4 g/dl or Pre-albumin 5 to 17 mg/dl1,2 Inadequate nutritional intake1,2,3,4 NPO > 5 days Weight loss: 5% in 1 month or 7.5% in 3 months or 10% in 6 months1, 3,4 BMI 16 to 18.4 or Weight <90% of ideal body weight1,2,3,4 Serum Albumin < 2.8 g/ dl1,2 Lymphocytes < 1500/ L2 Inadequate nutritional intake3, high stress e.g. major trauma, sepsis,pancreatitis, arredondo etc. Decubitus ulcers1,2, , skin breakdown2, easy hair pluckability2 Weight <80% standard for height2 Triceps skin fold <3 mm2 Mid-arm muscle circumference <15 cm2 Creatinine-height index <60% standard2 [ ] Cachexia [ ] Emaciated w/Malnutrition [ ] Other: [ ] Unable to determine [ ] Comment/Explanation: Present on Admission: [ x] Yes (Y) [ ] Clinically undeterminable (W) [ ] No (N) Please also document response in your Progress Notes and/or Discharge Summary and indicate if the condition was present on admission. MTDD
== END 2016-12-19 15:02 | disposition home health service (06) | DRG 644 ==
LOC: ED 23:48 → 4A 12-17 03:40
PROVIDERS: ADMIT Internal Medicine; ATTEND Internal Medicine
DX: E22.2 Syndrome of inappropriate secretion of antidiuretic hormone (principal); E44.1 Mild protein-calorie malnutrition; K52.9 Noninfective gastroenteritis and colitis, unspecified; I10 Essential (primary) hypertension; E03.9 Hypothyroidism, unspecified; E86.9 Volume depletion, unspecified; K21.9 Gastro-esophageal reflux disease without esophagitis; I34.0 Nonrheumatic mitral (valve) insufficiency; M19.90 Unspecified osteoarthritis, unspecified site; G89.29 Other chronic pain; M54.9 Dorsalgia, unspecified; Z98.51 Tubal ligation status; Z86.73 Personal history of transient ischemic attack (TIA), and cerebral infarction without residual deficits; Z82.3 Family history of stroke; Z82.49 Family history of ischemic heart disease and other diseases of the circulatory system; I16.0 Hypertensive urgency
CPT/HCPCS: 36415; 80048; 80053; 81001; 82533; 82550; 82553; 82570; 83735; 83935; 84295; 84300; 84443; 84484; 85007; 85025; 85027; 93005; 93010; 93306; G8978-GP; G8979-GP; J1644; J7030; J7070